=== PATIENT | female | born 1945 ===

== ENCOUNTER 2017-03-18 06:48 | Day surgery (SDC) | payer MEDICARE, MEDICAID ==
--- NOTE | 2017-03-14 13:08 | Pre-Procedure Note/Attestation ---
Pre-Procedure Note/Attestation Complete Prior to Procedure Planned Procedure: bilateral Procedure Narrative: 1- Ptosis correction upper lids. 2- Entropion correction upper lids. 3-Blepharoplasty uppers lids. Indications for Procedure Pre-Operative Diagnosis: 1- Blepharoptosis upper lids 2-Entropion upper lids. 3-Blepharochalasis upper lid Attestation I attest that I discussed the nature of the procedure; its benefits; risks and complications; and alternatives (and the risks and benefits of such alternatives ), prior to the procedure, with the patient (or the patient's legal sales representative supervisor). I attest that, if there was a reasonable possibility of needing a blood transfusion, the patient (or the patient's legal sales representative supervisor) was given the [facility] standardized written summary, pursuant to the [employer] Blood Safety Act ([place] [facility] and Safety Code # 1645, as amended). I attest that I re-evaluated the patient just prior to the surgery and that there has been no change in the patient's H&P, except as documented below: ÁLVARO MARIN Mar 14, 2017 13:08
[~2017-03-18] VITALS: Ht 152.4 cm; Wt 57.2 kg
[2017-03-18] VITALS (9 sets, daily range): BP systolic 113–146; BP diastolic 71–80
[~2017-03-18 06:48] MED LIST: Akten 3.5% 1ml Btl BOTH EYES ONE; CALCIUM PO; CENTRUM ADULTS1 EACH PO; Maxitrol Opth Oint 3.5gm BOTH EYES ONE
[2017-03-18] MEDS ORDERED: Akten 3.5% 1ml Btl ONE (06:56)
[2017-03-18] MEDS ORDERED: Lidocaine 2% 20mg/ml/Epi 0.005mg/ml 20ml vial ONE (07:08)
[2017-03-18] MEDS ORDERED: Tetracaine 0.5% Opth Soln ONE (07:08)
[2017-03-18] MEDS ORDERED: Povidone-Iodine 5% opth solution ONE (07:09)
[2017-03-18] MEDS ORDERED: Alfentanil 2ml Inj ONE (10:30)
[2017-03-18] MEDS ORDERED: Sterile Water Irrig 1000ml IRRIG ONE (10:30)
[2017-03-18] MEDS ORDERED: Propofol 200mg/20ml IV ONE (10:30)
[2017-03-18] MEDS ORDERED: Lidocaine 1% MPF 10mg/ml 5ml ONE (10:30)
[2017-03-18] MEDS ORDERED: NS Irrig 1000ml ONE (10:30)
[2017-03-18] MEDS ORDERED: Midazolam 2mg/2ml Inj ONE (10:30)
[2017-03-18] MEDS ORDERED: LR 1000ml ONE (10:30)
[2017-03-18] MEDS ORDERED: LR 1000ml 1,000 ML IVLG SCH (11:10)
--- NOTE | 2017-03-18 11:10 | Anethesia Preoperative Eval ---
Anesthesia Pre-op PMH/ROS General Date of Evaluation: Mar 18, 2017 Time of Evaluation: 10:38 Anesthesiologist: Shira ASA Score: ASA 2 Mallampati Score Class I : Soft palate, uvula, fauces, pillars visible Class II: Soft palate, uvula, fauces visible Class III: Soft palate, base of uvula visible Class IV: Only hard plate visible Mallampati Classification: Class II Surgeon: Brittany Diagnosis: Bilateral Ptosis Surgical Procedure: Bilateral Anesthesia History: none Family History: no anesthesia problems Allergies: Coded Allergies: No Known Allergies (Verified Allergy, Mild, 05/23/09) Medications: see eMAR Past Medical History Cardiovascular: Reports: HTN HEENT: Reports: cataract (L), cataract (R) PSxH Narrative: MARY, Bib Cat SX Anesthesia Pre-op Phys. Exam Physician Exam Last Vital Signs Date Time Temp Pulse Resp B/P (MAP) Pulse Ox O2 Delivery O2 Flow Rate FiO2 03/18/17 07:23 97.6 68 20 141/80 98 Room Air Constitutional: NAD Neurologic: CN 2-12 intact Cardiovascular: RRR Respiratory: CTA Gastrointestinal: S/NT/ND Airway Exam Mallampati Score: Class II MO: limited ROM: limited Teeth: intact Anesthesia Pre-op A/P Risk Assessment & Plan Assessment: ASA 2 Plan: GA Status Change Before Surgery: Clemente Pedraza MD Mar 18, 2017 11:10
--- NOTE | 2017-03-18 11:13 | 48 Hour Post Anesthesia Eval ---
Post Anesthesia Evaluation Procedure: Bilateral Blepharoplasty Date of Evaluation: Mar 18, 2017 Time of Evaluation: 14:38 Blood Pressure Systolic: 145 0: 83 Pulse Rate: 71 Respiratory Rate: 18 Temperature (Fahrenheit): 98.4 O2 Sat by Pulse Oximetry: 99 Airway: patent Nausea: No Vomiting: No Pain Intensity: 1 Hydration Status: adequate Cardiopulmonary Status: Stable Mental Status/LOC: patient returned to baseline Follow-up Care/Observations: 0 Post-Anesthesia Complications: 0 Follow-up care needed: ready to discharge Clemente Silva MD Mar 18, 2017 11:13
--- NOTE | 2017-03-18 11:13 | Immediate Post-Op Evaluation ---
Immediate Post-Op Evalulation Immediate Post-Op Evalulation Procedure: Bilateral Blepharoplasty Date of Evaluation: Mar 18, 2017 Time of Evaluation: 12:25 IV Fluids: 1000 LR Blood Products: 0 Estimated Blood Loss: 5 Urinary Output: 0 Blood Pressure Systolic: 146 Blood Pressure Diastolic: 76 Pulse Rate: 61 Respiratory Rate: 16 O2 Sat by Pulse Oximetry: 98 Temperature (Fahrenheit): 98.3 Pain Score (1-10): 1 Nausea: No Vomiting: No Complications 0 Patient Status: awake, reacts, patent, none Hydration Status: adequate Clemente Silva MD Mar 18, 2017 11:13
[2017-03-18] MEDS ORDERED: Ketorolac 60mg Inj IV PRN (11:15)
[2017-03-18] MEDS ORDERED: DiphenhydrAMINE 50mg/ml Inj IVP PRN (11:15)
[2017-03-18] MEDS ORDERED: Midazolam 2mg/2ml Inj IVP PRN (11:15)
[2017-03-18] MEDS ORDERED: Atropine Inj 1mg/10ml Syr IV PRN (11:15)
[2017-03-18] MEDS ORDERED: oxyCODONE HCL/Acetaminophen 5/325mg ORAL PRN (11:15)
[2017-03-18] MEDS ORDERED: Ketorolac 30mg Inj IV PRN (11:15)
[2017-03-18] MEDS ORDERED: Hydromorphone 0.5mg/0.5ml inj IVP PRN (11:15)
[2017-03-18] MEDS ORDERED: Norco 7.5mg/325mg tab ORAL PRN (11:15)
[2017-03-18] MEDS ORDERED: Metoclopramide 10mg/2ml Inj IVP PRN (11:15)
[2017-03-18] MEDS ORDERED: Norco 5mg/325mg tab ORAL PRN (11:15)
[2017-03-18] MEDS ORDERED: Meperidine 25mg/0.5ml Inj (FOR RIGORS ONLY) IV PRN (11:15)
[2017-03-18] MEDS ORDERED: LORazepam Inj 2mg/ml 1ml IV PRN (11:15)
[2017-03-18] MEDS ORDERED: fentaNYL 100 mcg/2 mL IV PRN (11:15)
--- NOTE | 2017-03-18 12:18 | Discharge Summary ---
Discharge Summary Discharge Summary Discharge Summary DATE OF ADMISSION: 03/18/2017 DATE OF DISCHARGE: 03/18/2017 REASON FOR HOSPITALIZATION: 1- Ptosis upper lids 2- Entropion, upper lids 3- Dermatochalasis , blepharochalasis, upper lids SURGERY PERFORMED: 1- ptosis corretion, upper lids 2- Entropion correction, upper lids 3- blepharoplasty, upper lids CONDITION IN THE HOSPITAL:The patient tolerated the surgery without complications. DISCHARGE CONDITION: The patient was stable at discharge. DISCHARGE MEDICATIONS: 1. Tobradex eye drops one drop q.i.d, OU 2. Maxitrol eye ointment apply to the wound, bid, OU 3. Keflex 500 mg, one PO q8h. 4. Talco 5mg/325mg, one Po q6h PRN per Pain POSTOPERATIVE ORDERS: The patient has to rest at home. No bending, No lifting, No watching Television tonight. POSTOPERATIVE FOLLOW UP: The patient will be followed in my office tomorrow morning at 7 o'clock. ÁLVARO MARIN Mar 18, 2017 12:18
--- NOTE | 2017-03-19 01:02 | Operative Note - Dictated ---
DATE OF OPERATION: 03/18/2017 [address]ACILITY: [facility]. SURGEON: Zeyad Soto M.D. MANAGER STRATEGIC MARKETING: None. ANESTHESIOLOGIST: Clemente Silva M.D. ANESTHESIA: Monitored anesthesia care (MAC). PREOPERATIVE DIAGNOSES: 1. Ptosis, upper lids. 2. Entropion, upper lids. 3. Dermatochalasis and blepharochalasis, upper lids. POSTOPERATIVE DIAGNOSES: 1. Ptosis, upper lids. 2. Entropion, upper lids. 3. Dermatochalasis and blepharochalasis, upper lids. SURGERY PERFORMED: 1. Ptosis correction, upper lids. 2. Entropion correction, upper lids. 3. Blepharoplasty, upper lids. Indications For The Surgery: The patient is a 71-year-old lady with history of osteopenia, on Fosamax, aspirin, calcium, vitamin D, multivitamin, and iron. She has high blood pressure and hypercholesterolemia. She has anxiety. She has hyperlipidemia, osteoarthritis, osteoporosis, uterine fibroids, and status post hysterectomy. She is taking her medications including Fosamax, vitamin D, multivitamin, iron, aspirin, calcium, and Diovan. She has GERD as well. She is complaining of blurry vision, droopy eyelids, and difficulty driving because of upper eyelid heaviness. She is suffering from severe blepharochalasis with ptosis and entropion. This problem is progressive dermatochalasis skin disease with resulting change of corneal curvature, which induces astigmatism and cover the visual axis, which is interruption for driving. The severity of the patient's dermatochalasis, ptosis, and entropion are clearly demonstrated on enclosed photos and the patient's visual huber. The only solution for the patient is correction of all those disfigurements and anatomy changes with surgery. Informed Consent: The nature of the surgery, risks, benefits, alternatives, and potential complications were explained to the patient in detail in her language, Farsi. She voiced understanding. The potential complications including, but not limited to bleeding, infection, corneal exposure, overcorrection, undercorrection, ecchymosis, swelling of the face, hematoma, dry eye syndrome, loss of eyelashes, loss of eyebrows, inequality of both eyes, change in vision, even loss of vision, and loss of the eye were all explained in detail to the patient, who voiced understanding and accepted all the complications. Then, she signed the consent form, which is in the chart. Description Of Surgery And Findings: Following that, the patient was taken to the operation room in a stable condition. Lidocaine gel Akten 3.5% was applied to the conjunctivae of both eyes. Following that, the upper lids were marked with a marking pen 10 mm above the root of the eyelashes and 15 mm below the lower part of the eyebrows. About 25 mm of the skin was left to facilitate eye closure. IV sedation was given by the anesthesiologist, Dr. Silva. After adequate anesthesia and sedation had been achieved, the upper eyelids and eyebrows were all anesthetized with 2% lidocaine and epinephrine 1:100,000. Following that, using a Bovie knife, the skin and subdermal tissue were dissected from the orbicularis oculi muscle and excised. A cut was made inside the orbicularis oculi muscle and hemostasis was performed. The 2 fat compartments were released. The fat compartments were sculptured conservatively. Following that, the levator palpebrae superioris muscle was dissected to the aponeurosis of the muscle and aponeurosis of the muscle was tacked 6 mm in each side and stitched with 6-0 Vicryl. Then, the stitches were trimmed and hemostasis was performed. Following that, a wedge groove was made 3 mm above the root of the upper eyelashes. Following that, the tarsal plate inside the groove was excised with Vannas scissors. Following that, the lids of the groove were stitched together with 6-0 Vicryl and the eyelid border rotated upward and lashes were turned from downward to upward. Following that, hemostasis was performed and the orbicularis oculi muscle was stitched in each side. Following that, the skin was closed with plain 6-0 plain gut in the fashion of aesthetic continuous running stitches. Following that, Maxitrol eye ointment was applied to the area. Following that, the patient was transferred to the recovery room. In the recovery room, cold compresses were applied to the area. The wound was checked for bleeding. There was no bleeding. Postoperative orders and directions were given to the patient. The patient will be discharged home upon stabilization. The patient will be followed in my office tomorrow morning. Zeyad Soto M.D. DR: Wilner JOB#: [id number] CC:
--- NOTE | 2017-03-21 11:06 | Brief Operative Note ---
Immediate Post Operative Note Operative Note Chief Complaint: Droopy eyelids, difficulty driving and reading Pre-op Diagnosis: 1- Blepharoptosis upper lids 2-Entropion upper lids. 3-Blepharochalasis upper lid Procedure: 1- Ptosis correction, upper lids 2- Entropion correction, upper lids 3- Blepharoplasty, upper lids Post-op Diagnosis: same as pre-op Surgeon: Álvaro Soto MD Senior Net Software Engineer: None Additional Surgeons: None Anesthesiologist: Dr. Oreilly Anesthesia: local, MAC Specimen: none Complications: none Condition: stable Fluids: 500ml LR Estimated Blood Loss: minimal Drains: none Implant(s) used?: ÁLVARO Cortez Mar 21, 2017 11:06
== END 2017-03-18 13:35 | disposition home or self-care (01) ==
LOC: SUR 06:48
DX: H02.403 Unspecified ptosis of bilateral eyelids (principal); H02.004 Unspecified entropion of left upper eyelid; H02.001 Unspecified entropion of right upper eyelid; H02.834 Dermatochalasis of left upper eyelid; H02.831 Dermatochalasis of right upper eyelid; H02.34 Blepharochalasis left upper eyelid; H02.31 Blepharochalasis right upper eyelid; M85.80 Other specified disorders of bone density and structure, unspecified site; F41.9 Anxiety disorder, unspecified; E78.00 Pure hypercholesterolemia, unspecified; E78.5 Hyperlipidemia, unspecified; M19.90 Unspecified osteoarthritis, unspecified site; I10 Essential (primary) hypertension; M81.0 Age-related osteoporosis without current pathological fracture; K21.9 Gastro-esophageal reflux disease without esophagitis; D25.9 Leiomyoma of uterus, unspecified; Z90.710 Acquired absence of both cervix and uterus; Z79.82 Long term (current) use of aspirin; H53.8 Other visual disturbances
CPT/HCPCS: 15822; 67921; J2250; J2704; J3490; J7120; 94003; 94150